=== PATIENT | female | born 1990 | race Two or more races ===

== ENCOUNTER 2019-01-20 18:00 | Emergency (ER) | payer OTHER, MEDICAID ==
[~2019-01-20] VITALS: Ht 165.1 cm; Wt 117.0 kg
--- NOTE | 2019-01-20 19:00 | NUR ---
PT RPTS +8WEEKS . US DONE IN [facility] LAST WEEK. [place] 09/01/[place] [id number]. PT STARTED HAVING LBP 01/19 AND NOTICED BROWN DISCHARGE FROM VAGINA. THIS MORNING AROUND 0100 SHE BEGAN NOTICING PINK TO RED SPOTTING. DAY PROGRESSED SHE DEVELOPED ABD CRAMPING AND SOAKED 2 BELINDA PADS IN [address] KNOWLES AT BEDSIDE, PT ASSESSMENT POC DISCUSSED AND ORDERS REC'D. PT VSS STABLE, C/O ABD CRAMPING AND DALY PAIN 11/14. TYLENOL REQUESTED. CALL LIGHT W/I REACH
[2019-01-20 19:03] LABS: BASOPHILS # (AUTO) 0.04 x10^3/uL (0-0.1); BASOPHILS % (AUTO) 0 % (0-1); EOSINOPHILS # (AUTO) 0.22 x10^3/uL (0-0.4); EOSINOPHILS % (AUTO) 2 % (1-7); LYMPHOCYTES # (AUTO) 4.36 x10^3/uL (1-3.4); LYMPHOCYTES % (AUTO) 30 % (22-44); MD NO; MEAN CORPUSCULAR HEMOGLOBIN 28.1 pg (27.0-34.8); MEAN CORPUSCULAR HGB CONC 32.9 g/dL (32.4-35.8); MEAN CORPUSCULAR VOLUME 85.5 fL (80-100); MEAN PLATELET VOLUME 7.9 fL (7.4-10.4); MONOCYTES # (AUTO) 0.75 x10^3/uL (0.2-0.8); MONOCYTES % (AUTO) 5 % (2-9); NEUTROPHILS # (AUTO) 9.36 x10^3/uL (1.8-6.8); NEUTROPHILS % (AUTO) 64 % (42-75); PLATELET COUNT 379 x10^3/uL (130-400); RED BLOOD COUNT 5.18 x10^6/uL (3.82-5.3); RED CELL DISTRIBUTION WIDTH 14.1 % (9.6-15.2)
[2019-01-20 19:14] LABS: ALBUMIN 3.6 g/dL (3.4-5.0); ANION GAP 9 mmol/L (5-15); CALCIUM 9.3 mg/dL (8.5-10.1); CHLORIDE 106 mmol/L (98-107)
[2019-01-20 19:21] LABS: MICROSCOPIC AUTO
[2019-01-20 19:32] LABS: CREATININE 0.72 mg/dL (0.55-1.02)
[2019-01-20 19:39] LABS: CULTURE INDICATED? NO
[2019-01-20] MEDS ORDERED: PRENATAL PO (19:51)
[2019-01-20] MEDS ORDERED: ACETAMINOPHEN 500 MG TABLET ONE (20:58)
[2019-01-20 21:03] VITALS: BP 114/67
--- NOTE | 2019-01-20 21:05 | NUR ---
ALL TESTS HAVE RESULTED. AWAITING MD TO COME AND DISCUSS FINDINGS WITH PATIENT. PATIENT MEDICATED FOR HEADACHE AND CRAMPING PAIN.
[2019-01-20] MEDS ORDERED: ACETAMINOPHEN 500 MG TABLET PO ONE (21:30)
--- NOTE | 2019-01-20 21:32 | NUR ---
Patient/Caregiver given discharge instructions and they have confirmed that they understand the instructions. Patient ambulatory with steady gait.
== END 2019-01-20 21:32 | disposition home or self-care (01) ==
LOC: ED 20:55
DX: O03.4 Incomplete spontaneous abortion without complication (principal); O36.4XX0 Maternal care for intrauterine death, not applicable or unspecified; Z3A.08 8 weeks gestation of pregnancy; Z90.49 Acquired absence of other specified parts of digestive tract
CPT/HCPCS: 36415; 76830; 80048; 81001; 82040; 84702; 85025; 86901; 99284